=== PATIENT | female | born 1985 | race Caucasian/White ===

== ENCOUNTER 2019-02-04 05:24 | Inpatient (IN) | payer BC ==
[~2019-02-04 05:24] MED LIST: Lactated Ringers 1,000 ML IV SCH; Nalbuphine 10 MG/1 ML Vial IVPUSH PRN; Sodium Chloride 0.9% 10 ML Syringe FLUSH PRN
[2019-02-04] MEDS ORDERED: Metoclopramide 10 MG/2 ML SDV IVPUSH ONE (06:30)
[2019-02-04] MEDS ORDERED: Citric Acid/Sodium Citrate Solution 30 ML Cup PO ONE (06:30)
[2019-02-04] MEDS ORDERED: ceFAZolin 2 GM in Premix Bag 1 BAG IV ONE (07:00)
[2019-02-04] MEDS ORDERED: Bupivacaine 0.5% 30 ML SDV ONE (07:07)
[2019-02-04] MEDS ORDERED: Morphine PF 10 MG/10 ML SDV ONE (07:15)
[2019-02-04] MEDS ORDERED: Ondansetron 4 MG/2 ML SDV ONE (07:15)
[2019-02-04] MEDS ORDERED: Oxytocin 10 Units/1 ML SDV ONE (07:15)
[2019-02-04] MEDS ORDERED: ceFAZolin 1 GM Vial ONE (07:16)
[2019-02-04] MEDS ORDERED: Lactated Ringers 1,000 ML ONE ×2 (07:19)
[2019-02-04] MEDS ORDERED: Oxytocin/Lactated Ringers 10 UNIT/1,000 ML BAG IV SCH (07:30)
--- NOTE | 2019-02-04 07:37 | PCM.PREANE ---
Preanesthetic Assessment - Procedure Proposed Procedure: Scheduled Repeat - Anesthesia/Transfusion/Family Hx Anesthesia History: Prior Anesthesia Reaction Type of Anesthesia Reaction: Other (see below) (nausea not vomitting ) Family History of Anesthesia Reaction: No Transfusion History: No Prior Transfusion(s) Type of Transfusion Reactions: Reports: Unknown Intubation History: Unknown - Review of Systems General: No Symptoms Pulmonary: No Symptoms Cardiovascular: No Symptoms Gastrointestinal: No Symptoms Neurological: No Symptoms Other: Reports: Depression, Anxiety - Physical Assessment NPO Status Date: 02/03/19 NPO Status Time: 23:40 O2 Sat by Pulse Oximetry: 100 Respiratory Rate: 14 Vital Signs: Last Vital Signs Temp 36.6 C 02/04/19 05:52 Pulse 81 02/04/19 05:52 Resp 14 02/04/19 05:52 BP 141/87 H 02/04/19 05:52 Pulse Ox 100 02/04/19 05:52 Height: 1.78 m Weight: 97.069 kg ASA Class: 2 Mental Status: Alert & Oriented x3 Airway Class: Mallampati = 1 Dentition: Reports: Normal Dentition Thyro-Mental Finger Breadths: 3 Mouth Opening Finger Breadths: 5 ROM/Head Extension: Full Lungs: Clear to Auscultation, Normal Respiratory Effort Cardiovascular: Regular Rate, Regular Rhythm - Lab Values: Laboratory Last Values WBC 7.86 K/mm3 (3.98-10.04) 02/04/19 05:50 RBC 4.18 M/mm3 (3.98-5.22) 02/04/19 05:50 Hgb 12.3 gm/L (11.2-15.7) 02/04/19 05:50 Hct 36.1 % (34.1-44.9) 02/04/19 05:50 MCV 86.4 fl (79.4-94.8) 02/04/19 05:50 MCH 29.4 pg (25.6-32.2) 02/04/19 05:50 MCHC 34.1 g/dl (32.2-35.5) 02/04/19 05:50 RDW Std Deviation 40.8 fL (36.4-46.3) 02/04/19 05:50 Plt Count 185 K/mm3 (182-369) 02/04/19 05:50 MPV 11.6 fl (9.4-12.3) 02/04/19 05:50 Neut % (Auto) 53.8 % (34.0-71.1) 02/04/19 05:50 Lymph % (Auto) 31.6 % (19.3-51.7) 02/04/19 05:50 [place] % (Auto) 11.6 % (4.7-12.5) 02/04/19 05:50 Eos % (Auto) 1.7 (0.7-5.8) 02/04/19 05:50 Baso % (Auto) 0.4 % (0.1-1.2) 02/04/19 05:50 Neut # (Auto) 4.24 K/mm3 (1.56-6.13) 02/04/19 05:50 Lymph # (Auto) 2.48 K/mm3 (1.18-3.74) 02/04/19 05:50 [place] # (Auto) 0.91 K/mm3 (0.24-0.36) H 02/04/19 05:50 Eos # (Auto) 0.13 K/mm3 (0.04-0.36) 02/04/19 05:50 Baso # (Auto) 0.03 K/mm3 (0.01-0.08) 02/04/19 05:50 Blood Type A POSITIVE 02/04/19 05:50 - Allergies Allergies/Adverse Reactions: Allergies Allergy/AdvReac Type Severity Reaction Status Date / Time No Known Allergies Allergy Verified 05/28/16 05:40 - Blood Blood Available: Yes Product(s) Available: PRBC - Anesthesia Plan Pre-Op Medication Ordered: Antacids - Acknowledgements Anesthesia Type Planned: Spinal Pt an Appropriate Candidate for the Planned Anesthesia: Yes Alternatives and Risks of Anesthesia Discussed w Pt/Guardian: Yes Pt/Guardian Understands and Agrees with Anesthesia Plan: Yes PreAnesthesia Questionnaire Cardiovascular History: Reports: None Respiratory History: Reports: None Gastrointestinal History: Reports: Other (See Below) Other Gastrointestinal History: umbilical hernia Genitourinary History: Reports: UTI, Recurrent Other Genitourinary History: 2 UTI's during ; effectively treated with antibiotics THERMOMETER MAKER History: Reports: Other OB/BYN History: Hx 1 abnormal pap Musculoskeletal History: Reports: Fracture Neurological History: Reports: None Psychiatric History: Reports: Anxiety, Depression Other Psychiatric History: Hx PP depression and depression not associated with ; took Zoloft 0.5mg PO Qd, though stopped during , plans to restart medication within the next week likely. Endocrine/Metabolic History: Reports: Other (See Below) Other Endocrine/Metabolic History: thyroid cyst Hematologic History: Reports: None Immunologic History: Reports: None Oncologic (Cancer) History: Reports: None Dermatologic History: Reports: Other (See Below) Other Dermatologic History: Two dermoid cysts, one on scalp and one on chest-- both pending dermatology consult in Jun 2016 - Infectious Disease History Infectious Disease History: Reports: None - Past Surgical History HEENT Surgical History: Reports: Oral Surgery Cardiovascular Surgical History: Reports: None Respiratory Surgical History: Reports: None GI Surgical History: Reports: Hernia Repair/Other Neurological Surgical History: Reports: None Oncologic Surgical History: Reports: None - SUBSTANCE USE Smoking Status *Q: Never Smoker Tobacco Use Within Last Twelve Months: No Second Hand Smoke Exposure: No Recreational Drug Use History: No - HOME MEDS Home Medications: Home Meds Calcium Carbonate [Calcium] 1 tab PO DAILY 09/28/14 [History] Docosahexanoic Acid [DHA] 100 mg PO DAILY 09/28/14 [History] Pnv with Ca,No.71/Iron/Fa [ Vitamin Tablet] 1 tab PO DAILY 09/28/14 [ History] Potassium Gluconate 1 tab PO BID 09/28/14 [History] Acetaminophen/oxyCODONE [Percocet 325-5 MG] 1 tab PO Q6H PRN #30 tablet [Rx] Docusate Sodium [Colace] 100 mg PO Q12H PRN #1 cap 10/01/14 [Rx] Hydrocortisone [Hydrocortisone 1% Crm] 28.4 gm TOP ASDIRECTED PRN #1 crm [Rx] Ibuprofen [Motrin] 600 mg PO Q6H PRN #30 tablet 10/01/14 [Rx] Lanolin [Lansinoh HPA] 7 gm TOP ASDIRECTED PRN #1 crm 10/01/14 [Rx] Simethicone 80 mg PO ACBED #30 tab.chew 10/01/14 [Rx] - CURRENT (IN HOUSE) MEDS Current Meds: Current Medications Cefazolin Sodium/Dextrose 2 gm (/ Premix) 50 mls @ 100 mls/hr IV ONETIME ONE Stop: 02/04/19 07:29 Lactated Ringer's (Ringers, Lactated) 1,000 mls @ 125 mls/hr IV ASDIRECTED [facility] Last Admin: 02/04/19 06:05 Dose: 125 mls/hr Oxytocin/Lactated Ringer's (Pitocin In Lr 10 Units/1,000 Ml) 10 unit in 1,000 mls @ 100 mls/hr IV ASDIRECTED [facility]; Protocol Nalbuphine HCl (Nubain) 10 mg IVPUSH Q2H PRN PRN Reason: Pain Sodium Chloride (Saline Flush) 10 ml FLUSH ASDIRECTED PRN PRN Reason: Keep Vein Open Discontinued Medications Bupivacaine HCl (Marcaine 0.5%) Confirm Administered Dose 30 ml .ROUTE .[facility]-MED ONE Stop: 02/04/19 07:08 Cefazolin Sodium (Ancef) Confirm Administered Dose 2 gm .ROUTE .[facility]-MED ONE Stop: 02/04/19 07:17 Citric Acid/Sodium Citrate (Bicitra Solution) 30 ml PO ONETIME ONE Stop: 02/04/19 06:31 Last Admin: 02/04/19 06:05 Dose: 30 ml Lactated Ringer's (Ringers, Lactated) Confirm Administered Dose 1,000 mls @ as directed .ROUTE .[facility]-MED ONE Stop: 02/04/19 07:20 Lactated Ringer's (Ringers, Lactated) Confirm Administered Dose 1,000 mls @ as directed .ROUTE .[facility]-MED ONE Stop: 02/04/19 07:20 Metoclopramide HCl (Reglan) 10 mg IVPUSH ONETIME ONE Stop: 02/04/19 06:31 Last Admin: 02/04/19 06:05 Dose: 10 mg Morphine Sulfate (Duramorph Pf) Confirm Administered Dose 10 mg .ROUTE .[facility]K-MED ONE Stop: 02/04/19 07:16 Ondansetron HCl (Zofran) Confirm Administered Dose 4 mg .ROUTE .STK-MED ONE Stop: 02/04/19 07:16 Oxytocin (Pitocin) Confirm Administered Dose 10 unit .ROUTE .STK-MED ONE Stop: 02/04/19 07:16
[2019-02-04] MEDS ORDERED: diphenhydrAMINE 50 MG/ML SDV IVPUSH PRN ×2 (07:41→10:22)
[2019-02-04] MEDS ORDERED: Ondansetron 4 MG/2 ML SDV IVPUSH PRN (07:41)
[2019-02-04] MEDS ORDERED: Ketorolac 30 MG/ML SDV ONE (08:08)
--- NOTE | 2019-02-04 09:02 | PCM.POSTAN ---
POST ANESTHESIA ASSESSMENT - MENTAL STATUS Mental Status: Alert - VITAL SIGNS Pulse Rate: 78 SaO2: 96 Resp Rate: 10 Blood Pressure: 116/71 Temperature: 37.8 C - RESPIRATORY Respiratory Status: Respiratory Rate WNL, Airway Patent, O2 Saturation Stable - CARDIOVASCULAR CV Status: Pulse Rate WNL, Blood Pressure Stable - GASTROINTESTINAL GI Status: No Symptoms - PAIN Pain Score: 0 - POST OP HYDRATION Hydration Status: Adequate & Stable
--- NOTE | 2019-02-04 09:07 | PCM.OPNOTE ---
- General Post-Op/Procedure Note Date of Surgery/Procedure: 02/04/19 Operative Procedure(s): Repeat Findings: Viable female, weight 8 lbs. 9 oz., Apgars 9/9 at 08 17 Pre Op Diagnosis: Prior desires repeat Post-Op Diagnosis: Same Anesthesia Technique: Spinal Primary Surgeon: Yulissa Philip Pan Pusher: Naina Hawk Role of Pan Pusher: Retraction patient safety expediting the procedure Fluid Replacement, Intraop: 1,000 Output, Urine Amount: 200 EBL in mLs: 700 Drain/Tube Comments:: [place] Complications: None Condition: Good Free Text/Narrative:: The patient was taken to the operating room where spinal anesthesia was dosed to surgical levels without difficulty. The patient was prepped and draped in the usual sterile fashion in the dorsal supine position with a leftward tilt. A Pfannenstiel skin incision was made with the scalpel and carried through to the underlying layer of fascia. The fascia was incised in the midline and extended laterally using Penaloza scissors. Ramon clamps were used to elevate the superior aspect of the fascial incision, which was elevated, and the underlying rectus muscles were dissected off bluntly and using Penaloza scissors. Attention was then turned to the inferior aspect of the fascial incision, which in similar fashion was grasped with Ramon clamps, elevated, and the underlying rectus muscles were dissected off bluntly and using the penaloza. The rectus muscles were dissected in the midline. The peritoneum was entered bluntly; this incision was extended superiorly and inferiorly with good visualization of the bladder. The bladder blade was inserted. The vesicouterine peritoneum was identified and entered sharply using Metzenbaum scissors. This incision was extended laterally and the bladder flap was created digitally. The bladder blade was reinserted. The lower uterine segment was incised in a transverse fashion using the scalpel and with digital traction. Clear fluid was noted. The infant was subsequently delivered by flexing the head to the incision. Body and shoulders followed without difficulty. The cord was clamped and cut. The infant was subsequently handed to the awaiting bicycle rental clerk whose presence had been requested.. The placenta was delivered spontaneously intact with a three-vessel cord noted. The uterus was exteriorized and cleared of all clots and debris. The uterine incision was repaired in 2 layers using 0 monocryl. Hemostasis was visualized. Hemostasis was visualized bilaterally. The uterus was returned to the abdomen. The uterine incision was reexamined and it was noted to be hemostatic. The pelvis was copiously irrigated. Rectus muscles reapproximated with interrupted sutures of 0 Monocryl The fascia was closed with 1 PDS suture, and the skin was closed with 3-0 monocryl. Sponge, lap, and instrument counts were correct x2. The patient was stable at the completion of the procedure and was subsequently transferred to the recovery room in stable condition.
[2019-02-04] MEDS ORDERED: Naloxone 0.4 MG/ML SDV IVPUSH PRN (10:22)
[2019-02-04] MEDS ORDERED: ePHEDrine 50 MG/ML SDV IVPUSH PRN (10:22)
[2019-02-04] MEDS ORDERED: Dextrose 5%-Lactated Ringers 1,000 ML IV SCH (10:22)
[2019-02-04] MEDS ORDERED: Ibuprofen 600 MG Tab PO PRN (10:22)
[2019-02-04] MEDS ORDERED: Lanolin 100% Cream 7 GM Tube TOP PRN (10:22)
[2019-02-04] MEDS: Ketorolac 30 MG/ML SDV IVPUSH SCH ×2 (14:18→19:47)
[2019-02-04] MEDS: Acetaminophen/oxyCODONE 325-5 MG Tab PO PRN (19:53)
[2019-02-04] MEDS: Docusate Sodium 100 MG Cap PO PRN (21:52)
[2019-02-04] MEDS: Simethicone 80 MG Tab.Chew PO PRN (21:52)
[2019-02-05] MEDS: Acetaminophen/oxyCODONE 325-5 MG Tab PO PRN ×6 (00:16→22:14)
[2019-02-05] MEDS: Simethicone 80 MG Tab.Chew PO PRN ×5 (00:18→22:15)
[2019-02-05] MEDS: Ketorolac 30 MG/ML SDV IVPUSH SCH (02:12)
--- NOTE | 2019-02-05 05:05 | PCM.PNPP ---
- General Info Date of Service: 02/05/19 Functional Status: Reports: Pain Controlled - Review of Systems General: Reports: No Symptoms HEENT: Reports: No Symptoms Pulmonary: Reports: No Symptoms Cardiovascular: Reports: No Symptoms Gastrointestinal: Reports: No Symptoms Genitourinary: Reports: No Symptoms Musculoskeletal: Reports: No Symptoms Skin: Reports: No Symptoms Neurological: Reports: No Symptoms Psychiatric: Reports: No Symptoms - General Info Date of Service: 02/05/19 - Patient Data Vital Signs - Most Recent: Last Vital Signs Temp 36.1 C 02/04/19 16:05 Pulse 94 02/05/19 00:21 Resp 16 02/05/19 03:00 BP 115/77 02/05/19 00:21 Pulse Ox 99 02/05/19 03:00 Weight - Most Recent: 97.069 kg I&O - Last 24 Hours: Intake & Output 02/04/19 02/04/19 02/05/19 14:59 22:59 06:59 Intake Total 1250 1335 Output Total 400 3250 Balance 850 -1915 Lab Results - Last 24 Hours: Laboratory Results - last 24 hr 02/04/19 02/04/19 02/04/19 Range/Units 05:50 05:50 05:50 WBC 7.86 (3.98-10.04) K/mm3 RBC 4.18 (3.98-5.22) M/mm3 Hgb 12.3 (11.2-15.7) gm/L Hct 36.1 (34.1-44.9) % MCV 86.4 (79.4-94.8) fl MCH 29.4 (25.6-32.2) pg MCHC 34.1 (32.2-35.5) g/dl RDW Std Deviation 40.8 (36.4-46.3) fL Plt Count 185 (182-369) K/mm3 MPV 11.6 (9.4-12.3) fl Neut % (Auto) 53.8 (34.0-71.1) % Lymph % (Auto) 31.6 (19.3-51.7) % [place] % (Auto) 11.6 (4.7-12.5) % Eos % (Auto) 1.7 (0.7-5.8) Baso % (Auto) 0.4 (0.1-1.2) % Neut # (Auto) 4.24 (1.56-6.13) K/mm3 Lymph # (Auto) 2.48 (1.18-3.74) K/mm3 [place] # (Auto) 0.91 H (0.24-0.36) K/mm3 Eos # (Auto) 0.13 (0.04-0.36) K/mm3 Baso # (Auto) 0.03 (0.01-0.08) K/mm3 RPR Non-reactive (NONREACTIVE) Blood Type A POSITIVE Gel Antibody Screen Negative Med Orders - Current: Current Medications Diphenhydramine HCl (Benadryl) 25 mg IVPUSH Q6H PRN PRN Reason: Itching or Nausea Docusate Sodium (Colace) 100 mg PO Q12H PRN PRN Reason: Constipation Last Admin: 02/04/19 21:52 Dose: 100 mg Emollient Ointment (Lansinoh Hpa) 0 gm TOP ASDIRECTED PRN PRN Reason: Sore Nipples Ephedrine Sulfate (Ephedrine Sulfate) 5 mg IVPUSH SEECOMMENT PRN PRN Reason: Other Ibuprofen (Motrin) 600 mg PO Q6H PRN PRN Reason: mild pain or fever Naloxone HCl (Narcan) 0.1 mg IVPUSH SEECOMMENT PRN PRN Reason: Respiratory Depression Oxycodone/Acetaminophen (Percocet 325-5 Mg) 2 tab PO Q4H PRN PRN Reason: Pain (moderate 4-6) Last Admin: 02/05/19 00:16 Dose: 2 tab Simethicone (Simethicone) 80 mg PO QIDACANDBED PRN PRN Reason: Gas Last Admin: 02/05/19 00:18 Dose: 80 mg Discontinued Medications Bupivacaine HCl (Marcaine 0.5%) Confirm Administered Dose 30 ml .ROUTE .STK-MED ONE Stop: 02/04/19 07:08 Last Admin: 02/04/19 08:18 Dose: 20 ml Cefazolin Sodium (Ancef) Confirm Administered Dose 2 gm .ROUTE .STK-MED ONE Stop: 02/04/19 07:17 Citric Acid/Sodium Citrate (Bicitra Solution) 30 ml PO ONETIME ONE Stop: 02/04/19 06:31 Last Admin: 02/04/19 06:05 Dose: 30 ml Diphenhydramine HCl (Benadryl) 25 mg IVPUSH Q6H PRN PRN Reason: pruritis Cefazolin Sodium/Dextrose 2 gm (/ Premix) 50 mls @ 100 mls/hr IV ONETIME ONE Stop: 02/04/19 07:29 Lactated Ringer's (Ringers, Lactated) 1,000 mls @ 125 mls/hr IV [facility]ED [facility] Last Admin: 02/04/19 06:05 Dose: 125 mls/hr Oxytocin/Lactated Ringer's (Pitocin In Lr 10 Units/1,000 Ml) 10 unit in 1,000 mls @ 100 mls/hr IV ASD[facility]RECTED [facility]; Protocol Lactated Ringer's (Ringers, Lactated) Confirm Administered Dose 1,000 mls @ as directed .ROUTE .STK-MED ONE Stop: 02/04/19 07:20 Lactated Ringer's (Ringers, Lactated) Confirm Administered Dose 1,000 mls @ as directed .ROUTE .STK-MED ONE Stop: 02/04/19 07:20 Dextrose/Lactated Ringer's (Dextrose 5%-Lactated Ringers) 1,000 mls @ 125 mls/ hr IV [facility]RECTED [facility] Stop: 02/04/19 18:21 Last Admin: 02/04/19 10:32 Dose: 125 mls/hr Ibuprofen (Motrin) 600 mg PO Q6H PRN PRN Reason: mild pain or fever Ketorolac Tromethamine (Toradol) Confirm Administered Dose 30 mg .ROUTE .STK- MED ONE Stop: 02/04/19 08:09 Ketorolac Tromethamine (Toradol) 30 mg IVPUSH Q6H [facility] Stop: 02/05/19 02:01 Last Admin: 02/05/19 02:12 Dose: 30 mg Metoclopramide HCl (Reglan) 10 mg IVPUSH ONETIME ONE Stop: 02/04/19 06:31 Last Admin: 02/04/19 06:05 Dose: 10 mg Morphine Sulfate (Duramorph Pf) Confirm Administered Dose 10 mg .ROUTE .STK-MED ONE Stop: 02/04/19 07:16 Nalbuphine HCl (Nubain) 10 mg IVPUSH Q2H PRN PRN Reason: Pain Ondansetron HCl (Zofran) Confirm Administered Dose 4 mg .ROUTE .STK-MED ONE Stop: 02/04/19 07:16 Ondansetron HCl (Zofran) 4 mg IVPUSH ONETIME PRN PRN Reason: Nausea/Vomiting Oxytocin (Pitocin) Confirm Administered Dose 10 unit .ROUTE .STK-MED ONE Stop: 02/04/19 07:16 Sodium Chloride (Saline Flush) 10 ml FLUSH ASDIRECTED PRN PRN Reason: Keep Vein Open - Interaction Disposition, : at Bedside Support Person: - Recovery Exam Fundal Tone: Firm Fundal Level: 1 Fingerbreadths Below Umbilicus Fundal Placement: Midline Lochia Amount: Small Lochia Color: Rubra/Red Perineum Description: Intact, Minimal Bruising/Swelling Episiotomy/Laceration: None Bladder Status: Indwelling Catheter in Place Urinary Elimination: Indwelling Catheter - Exam General: Alert, Oriented HEENT: Pupils Equal Neck: Supple Lungs: Clear to Auscultation, Normal Respiratory Effort Cardiovascular: Regular Rate, Regular Rhythm GI/Abdominal Exam: Normal Bowel Sounds, Soft, Non-Tender, No Organomegaly, No Distention, No Abnormal Bruit, No Mass, Pelvis Stable Extremities: Normal Inspection, Normal Range of Motion, Non-Tender, No Pedal Edema, Normal Capillary Refill Skin: Warm, Dry, Intact Wound/Incisions: Healing Well Neurological: No New Focal Deficit Psy/Mental Status: Alert, Normal Affect, Normal Mood - Problem List Review Problem List Initiated/Reviewed/Updated: Yes - My Orders Last 24 Hours: My Active Orders 02/04/19 10:22 Communication Order [RC] PER UNIT ROUTINE Communication Order [RC] PER UNIT ROUTINE Notify Provider Intake and Out [RC] ASDIRECTED Vital Signs [RC] Q1HR Acetaminophen/oxyCODONE [Percocet 325-5 MG] 2 tab PO Q4H PRN Docusate Sodium [Colace] 100 mg PO Q12H PRN Lanolin [Lansinoh HPA] See Dose Instructions TOP ASDIRECTED PRN Naloxone [Narcan] 0.1 mg IVPUSH SEECOMMENT PRN diphenhydrAMINE [Benadryl] 25 mg IVPUSH Q6H PRN ePHEDrine [ePHEDrine sulfate] 5 mg IVPUSH SEECOMMENT PRN Assess Lochia [WOMSER] Per Unit Routine Assess Uterine Involution [WOMSER] Per Unit Routine Medication Administration Instruction [OM.PC] Routine 02/04/19 21:19 Simethicone 80 mg PO QIDACANDBED PRN 02/04/19 Lunch Regular Diet [DIET] 02/05/19 05:11 CBC WITH AUTO DIFF [HEME] AM 02/05/19 08:00 Ibuprofen [Motrin] 600 mg PO Q6H PRN 02/05/19 09:08 Urinary Catheter Removal [RC] Per Unit Routine - Assessment Assessment:: Term . POD1 Doing great. - Plan Plan:: Rx sent ahead of time for percocet. Doing great. Probably will desire discharge POD3.
--- NOTE | 2019-02-05 07:38 | PCM48HPAN ---
Post Anesthesia Note - EVALUATION WITHIN 48HRS OF ANESTHETIC Vital Signs in Normal Range: Yes Patient Participated in Evaluation: Yes Respiratory Function Stable: Yes Airway Patent: Yes Cardiovascular Function Stable: Yes Hydration Status Stable: Yes Pain Control Satisfactory: Yes Nausea and Vomiting Control Satisfactory: Yes Mental Status Recovered: Yes Pulse Rate: 94 Resp Rate: 15 Temperature: 36.1 C Blood Pressure: 115/77
[2019-02-05] MEDS: Docusate Sodium 100 MG Cap PO PRN ×2 (12:24→22:15)
[2019-02-05] MEDS: Ibuprofen 600 MG Tab PO PRN (19:43)
[2019-02-06] MEDS: Ibuprofen 600 MG Tab PO PRN (03:21)
[2019-02-06] MEDS: Acetaminophen/oxyCODONE 325-5 MG Tab PO PRN ×4 (06:54→18:57)
--- NOTE | 2019-02-06 08:10 | PCM.PNPP ---
- General Info Date of Service: 02/06/19 Functional Status: Reports: Pain Controlled, Tolerating Diet, Ambulating, Urinating - Review of Systems General: Reports: No Symptoms Pulmonary: Reports: No Symptoms Cardiovascular: Reports: No Symptoms Gastrointestinal: Reports: Abdominal Pain (managed with medications ) Genitourinary: Reports: No Symptoms Musculoskeletal: Reports: No Symptoms Neurological: Reports: No Symptoms - Patient Data Vital Signs - Most Recent: Last Vital Signs Temp 37.1 C 02/06/19 02:43 Pulse 72 02/06/19 02:43 Resp 12 02/06/19 02:43 BP 101/57 L 02/06/19 02:43 Pulse Ox 97 02/06/19 02:43 Weight - Most Recent: 97.069 kg I&O - Last 24 Hours: Intake & Output 02/05/19 02/06/19 02/06/19 22:59 06:59 14:59 Intake Total 960 Balance 960 Med Orders - Current: Current Medications Diphenhydramine HCl (Benadryl) 25 mg IVPUSH Q6H PRN PRN Reason: Itching or Nausea Docusate Sodium (Colace) 100 mg PO Q12H PRN PRN Reason: Constipation Last Admin: 02/05/19 22:15 Dose: 100 mg Emollient Ointment (Lansinoh Hpa) 0 gm TOP ASDIRECTED PRN PRN Reason: Sore Nipples Last Admin: 02/05/19 05:40 Dose: 1 tube Ephedrine Sulfate (Ephedrine Sulfate) 5 mg IVPUSH SEECOMMENT PRN PRN Reason: Other Ibuprofen (Motrin) 600 mg PO Q6H PRN PRN Reason: mild pain or fever Last Admin: 02/06/19 03:21 Dose: 600 mg Naloxone HCl (Narcan) 0.1 mg IVPUSH SEECOMMENT PRN PRN Reason: Respiratory Depression Oxycodone/Acetaminophen (Percocet 325-5 Mg) 2 tab PO Q4H PRN PRN Reason: Pain (moderate 4-6) Last Admin: 02/06/19 06:54 Dose: 2 tab Simethicone (Simethicone) 80 mg PO QIDACANDBED PRN PRN Reason: Gas Last Admin: 02/05/19 22:15 Dose: 80 mg Discontinued Medications Bupivacaine HCl (Marcaine 0.5%) Confirm Administered Dose 30 ml .ROUTE .[facility]-MED ONE Stop: 02/04/19 07:08 Last Admin: 02/04/19 08:18 Dose: 20 ml Cefazolin Sodium (Ancef) Confirm Administered Dose 2 gm .ROUTE .[facility]-MED ONE Stop: 02/04/19 07:17 Citric Acid/Sodium Citrate (Bicitra Solution) 30 ml PO ONETIME ONE Stop: 02/04/19 06:31 Last Admin: 02/04/19 06:05 Dose: 30 ml Diphenhydramine HCl (Benadryl) 25 mg IVPUSH Q6H PRN PRN Reason: pruritis Cefazolin Sodium/Dextrose 2 gm (/ Premix) 50 mls @ 100 mls/hr IV ONETIME ONE Stop: 02/04/19 07:29 Lactated Ringer's (Ringers, Lactated) 1,000 mls @ 125 mls/hr IV ASDIRECTED [facility] Last Admin: 02/04/19 06:05 Dose: 125 mls/hr Oxytocin/Lactated Ringer's (Pitocin In Lr 10 Units/1,000 Ml) 10 unit in 1,000 mls @ 100 mls/hr IV ASDIRECTED [facility]; Protocol Lactated Ringer's (Ringers, Lactated) Confirm Administered Dose 1,000 mls @ as directed .ROUTE .[facility]-MED ONE Stop: 02/04/19 07:20 Lactated Ringer's (Ringers, Lactated) Confirm Administered Dose 1,000 mls @ as directed .ROUTE .[facility]-MED ONE Stop: 02/04/19 07:20 Dextrose/Lactated Ringer's (Dextrose 5%-Lactated Ringers) 1,000 mls @ 125 mls/ hr IV ASDIRECTED [facility] Stop: 02/04/19 18:21 Last Admin: 02/04/19 10:32 Dose: 125 mls/hr Ibuprofen (Motrin) 600 mg PO Q6H PRN PRN Reason: mild pain or fever Ketorolac Tromethamine (Toradol) Confirm Administered Dose 30 mg .ROUTE .STK- MED ONE Stop: 02/04/19 08:09 Ketorolac Tromethamine (Toradol) 30 mg IVPUSH Q6H [facility] Stop: 02/05/19 02:01 Last Admin: 02/05/19 02:12 Dose: 30 mg Metoclopramide HCl (Reglan) 10 mg IVPUSH ONETIME ONE Stop: 02/04/19 06:31 Last Admin: 02/04/19 06:05 Dose: 10 mg Morphine Sulfate (Duramorph Pf) Confirm Administered Dose 10 mg .ROUTE .STK-MED ONE Stop: 02/04/19 07:16 Nalbuphine HCl (Nubain) 10 mg IVPUSH Q2H PRN PRN Reason: Pain Ondansetron HCl (Zofran) Confirm Administered Dose 4 mg .ROUTE .STK-MED ONE Stop: 02/04/19 07:16 Ondansetron HCl (Zofran) 4 mg IVPUSH ONETIME PRN PRN Reason: Nausea/Vomiting Oxytocin (Pitocin) Confirm Administered Dose 10 unit .ROUTE .STK-MED ONE Stop: 02/04/19 07:16 Sodium Chloride (Saline Flush) 10 ml FLUSH ASDIRECTED PRN PRN Reason: Keep Vein Open - Infant Interaction Infant Disposition, : [place] at Bedside Interaction: Holding Infant Infant Feeding: Breastfed Infant; Nursed Well Support Person: - Recovery Exam Fundal Tone: Firm Fundal Level: 1 Fingerbreadths Below Umbilicus Fundal Placement: Midline Lochia Amount: Small Lochia Color: Rubra/Red Perineum Description: Intact, Minimal Bruising/Swelling Episiotomy/Laceration: None Bladder Status: Voiding Urinary Elimination: Voided Other Urinary Elimination, : catheter removed - Exam General: Alert, Oriented, Cooperative Lungs: Clear to Auscultation, Normal Respiratory Effort Cardiovascular: Regular Rhythm, Bradycardia GI/Abdominal Exam: Soft, Tender (appropriate post op) Extremities: Normal Inspection Skin: Warm, Dry, Intact Wound/Incisions: Healing Well, No Drainage - Problem List & Annotations (1) 39 weeks gestation of SNOMED Code(s): 73822190 Code(s): Z3A.39 - 39 WEEKS GESTATION OF Status: Acute Current Visit: Yes (2) S/P repeat low transverse SNOMED Code(s): 594383654, 48614227, 506877284, 804476070, 393714412 Code(s): Z98.891 - HISTORY OF UTERINE SCAR FROM PREVIOUS SURGERY Status: Acute Current Visit: Yes - Problem List Review Problem List Initiated/Reviewed/Updated: Yes - Assessment Assessment:: 33 y/o G4 now P4004 PPD#2 from [facility] - Plan Plan:: S/p [facility] * Routine cares * Breast feeding * Discharge home tomorrow
[2019-02-06] MEDS: Docusate Sodium 100 MG Cap PO PRN (09:44)
[2019-02-06] MEDS ORDERED: Magnesium Hydroxide 400 MG/5 ML Susp 30 ML Cup PO ONE (13:21)
[2019-02-07] MEDS: Acetaminophen/oxyCODONE 325-5 MG Tab PO PRN ×3 (00:12→10:06)
[2019-02-07] MEDS: Ibuprofen 600 MG Tab PO PRN (03:36)
[2019-02-07] MEDS: Docusate Sodium 100 MG Cap PO PRN (05:47)
--- NOTE | 2019-02-07 09:17 | PCM.PNPP ---
- General Info Date of Service: 02/07/19 Functional Status: Reports: Pain Controlled, Tolerating Diet, Ambulating, Urinating - Review of Systems General: Reports: No Symptoms Pulmonary: Reports: No Symptoms Cardiovascular: Reports: No Symptoms Gastrointestinal: Reports: Abdominal Pain (along incision line) Genitourinary: Reports: No Symptoms Musculoskeletal: Reports: No Symptoms Neurological: Reports: No Symptoms - Patient Data Vital Signs - Most Recent: Last Vital Signs Temp 36.7 C 02/07/19 02:00 Pulse 84 02/07/19 02:00 Resp 16 02/07/19 02:00 BP 119/78 02/07/19 02:00 Pulse Ox 98 02/07/19 02:00 Weight - Most Recent: 97.069 kg I&O - Last 24 Hours: Intake & Output 02/06/19 02/07/19 02/07/19 22:59 06:59 14:59 Intake Total 960 Balance 960 Med Orders - Current: Current Medications Diphenhydramine HCl (Benadryl) 25 mg IVPUSH Q6H PRN PRN Reason: Itching or Nausea Docusate Sodium (Colace) 100 mg PO Q12H PRN PRN Reason: Constipation Last Admin: 02/07/19 05:47 Dose: 100 mg Emollient Ointment (Lansinoh Hpa) 0 gm TOP ASDIRECTED PRN PRN Reason: Sore Nipples Last Admin: 02/05/19 05:40 Dose: 1 tube Ephedrine Sulfate (Ephedrine Sulfate) 5 mg IVPUSH SEECOMMENT PRN PRN Reason: Other Ibuprofen (Motrin) 600 mg PO Q6H PRN PRN Reason: mild pain or fever Last Admin: 02/07/19 03:36 Dose: 600 mg Naloxone HCl (Narcan) 0.1 mg IVPUSH SEECOMMENT PRN PRN Reason: Respiratory Depression Oxycodone/Acetaminophen (Percocet 325-5 Mg) 2 tab PO Q4H PRN PRN Reason: Pain (moderate 4-6) Last Admin: 02/07/19 05:47 Dose: 2 tab Simethicone (Simethicone) 80 mg PO QIDACANDBED PRN PRN Reason: Gas Last Admin: 02/05/19 22:15 Dose: 80 mg Discontinued Medications Bupivacaine HCl (Marcaine 0.5%) Confirm Administered Dose 30 ml .ROUTE .[facility] ONE Stop: 02/04/19 07:08 Last Admin: 02/04/19 08:18 Dose: 20 ml Cefazolin Sodium (Ancef) Confirm Administered Dose 2 gm .ROUTE .[facility] ONE Stop: 02/04/19 07:17 Citric Acid/Sodium Citrate (Bicitra Solution) 30 ml PO ONETIME ONE Stop: 02/04/19 06:31 Last Admin: 02/04/19 06:05 Dose: 30 ml Diphenhydramine HCl (Benadryl) 25 mg IVPUSH Q6H PRN PRN Reason: pruritis Cefazolin Sodium/Dextrose 2 gm (/ Premix) 50 mls @ 100 mls/hr IV ONETIME ONE Stop: 02/04/19 07:29 Lactated Ringer's (Ringers, Lactated) 1,000 mls @ 125 mls/hr IV ASDIRECTED [facility] Last Admin: 02/04/19 06:05 Dose: 125 mls/hr Oxytocin/Lactated Ringer's (Pitocin In Lr 10 Units/1,000 Ml) 10 unit in 1,000 mls @ 100 mls/hr IV ASDIRECTED [facility]; Protocol Lactated Ringer's (Ringers, Lactated) Confirm Administered Dose 1,000 mls @ as directed .ROUTE .[facility] ONE Stop: 02/04/19 07:20 Lactated Ringer's (Ringers, Lactated) Confirm Administered Dose 1,000 mls @ as directed .ROUTE .[facility] ONE Stop: 02/04/19 07:20 Dextrose/Lactated Ringer's (Dextrose 5%-Lactated Ringers) 1,000 mls @ 125 mls/ hr IV ASDIRECTED [facility] Stop: 02/04/19 18:21 Last Admin: 02/04/19 10:32 Dose: 125 mls/hr Ibuprofen (Motrin) 600 mg PO Q6H PRN PRN Reason: mild pain or fever Ketorolac Tromethamine (Toradol) Confirm Administered Dose 30 mg .ROUTE .[facility]- MED ONE Stop: 02/04/19 08:09 Ketorolac Tromethamine (Toradol) 30 mg IVPUSH Q6H [facility] Stop: 02/05/19 02:01 Last Admin: 02/05/19 02:12 Dose: 30 mg Magnesium Hydroxide (Milk Of Magnesia) 30 ml PO ONETIME ONE Stop: 02/06/19 13:22 Last Admin: 02/06/19 13:28 Dose: 30 ml Metoclopramide HCl (Reglan) 10 mg IVPUSH ONETIME ONE Stop: 02/04/19 06:31 Last Admin: 02/04/19 06:05 Dose: 10 mg Morphine Sulfate (Duramorph Pf) Confirm Administered Dose 10 mg .ROUTE .[facility]-MED ONE Stop: 02/04/19 07:16 Nalbuphine HCl (Nubain) 10 mg IVPUSH Q2H PRN PRN Reason: Pain Ondansetron HCl (Zofran) Confirm Administered Dose 4 mg .ROUTE .[facility]-MED ONE Stop: 02/04/19 07:16 Ondansetron HCl (Zofran) 4 mg IVPUSH ONETIME PRN PRN Reason: Nausea/Vomiting Oxytocin (Pitocin) Confirm Administered Dose 10 unit .ROUTE .[facility]-MED ONE Stop: 02/04/19 07:16 Sodium Chloride (Saline Flush) 10 ml FLUSH ASDIRECTED PRN PRN Reason: Keep Vein Open - Infant Interaction Infant Disposition, : [place] at Bedside Infant Interaction: Holding Feeding: Breastfed Infant; Nursed Well Support Person: - Recovery Exam Fundal Tone: Firm Fundal Level: 2 Fingerbreadths Below Umbilicus Fundal Placement: Midline Lochia Amount: Small Lochia Color: Rubra/Red Perineum Description: Intact, Minimal Bruising/Swelling Episiotomy/Laceration: None Bladder Status: Voiding Urinary Elimination: Voided Other Urinary Elimination, : catheter removed - Exam General: Alert, Oriented, Cooperative Lungs: Clear to Auscultation, Normal Respiratory Effort Cardiovascular: Regular Rate, Regular Rhythm GI/Abdominal Exam: Soft, Tender (appropriate for post op) Extremities: Normal Inspection Skin: Warm, Dry, Intact Wound/Incisions: Healing Well, No Drainage - Problem List & Annotations (1) 39 weeks gestation of SNOMED Code(s): 24678210 Code(s): Z3A.39 - 39 WEEKS GESTATION OF Status: Acute Current Visit: Yes (2) S/P repeat low transverse SNOMED Code(s): 304721546, 68006051, 764719344, 403411830, 948472852 Code(s): Z98.891 - HISTORY OF UTERINE SCAR FROM PREVIOUS SURGERY Status: Acute Current Visit: Yes - Problem List Review Problem List Initiated/Reviewed/Updated: Yes - Assessment Assessment:: 33 y/o G4 now P4004 PPD#3 from RLTCS - Plan Plan:: S/p RLTCS * Routine cares * Breast feeding * Discharge home today
--- NOTE | 2019-02-07 09:22 | PCM.DCSUM1 ---
Discharge Summary - Discharge Data Discharge Date: 02/07/19 Discharge Disposition: Home, Self-Care 01 Condition: Good - Discharge Diagnosis/Problem(s) (1) 39 weeks gestation of SNOMED Code(s): 27711211 ICD Code: Z3A.39 - 39 WEEKS GESTATION OF Status: Acute Current Visit: Yes (2) S/P repeat low transverse SNOMED Code(s): 940747357, 92067248, 691719151, 668043239, 561892847 ICD Code: Z98.891 - HISTORY OF UTERINE SCAR FROM PREVIOUS SURGERY Status: Acute Current Visit: Yes - Patient Summary/Data Operative Procedure(s) Performed: Repeat Complications: None Consults: None Recommended Follow-up Testing/Procedures: Follow up in 1 week for incision check Hospital Course: 33 y/o presented for planned RLTCS. This was uncomplicated. See procedure note. Post op patient did well and was discharged home on POD#3 - Patient Instructions Diet: Regular Diet as Tolerated Activity: No Lifting Over 10 Pounds Activity, Other: Pelvic rest for 6 weeks Driving: Do Not Drive (While taking narcotics ) Showering/Bathing: May Shower, No Tub Bathing/Swimming Wound/Incision Care: Keep Operative Site/Wound Site Clean and Dry Notify Provider of: Fever, Increased Pain, Swelling and Redness, Drainage, Nausea and/or Vomiting - Discharge Plan *PRESCRIPTION DRUG MONITORING PROGRAM REVIEWED*: Not Applicable *COPY OF PRESCRIPTION DRUG MONITORING REPORT IN PATIENT IRAM: Not Applicable Home Medications: Home Meds Calcium Carbonate [Calcium] 1 tab PO DAILY 09/28/14 [History] Docosahexanoic Acid [DHA] 100 mg PO DAILY 09/28/14 [History] Pnv with Ca,No.71/Iron/Fa [ Vitamin Tablet] 1 tab PO DAILY 09/28/14 [ History] Potassium Gluconate 1 tab PO BID 09/28/14 [History] Acetaminophen/oxyCODONE [Percocet 325-5 MG] 1 tab PO Q6H PRN #30 tablet [Rx] Docusate Sodium [Colace] 100 mg PO Q12H PRN #1 cap 10/01/14 [Rx] Hydrocortisone [Hydrocortisone 1% Crm] 28.4 gm TOP ASDIRECTED PRN #1 crm [Rx] Ibuprofen [Motrin] 600 mg PO Q6H PRN #30 tablet 10/01/14 [Rx] Lanolin [Lansinoh HPA] 7 gm TOP ASDIRECTED PRN #1 crm 10/01/14 [Rx] Simethicone 80 mg PO ACBED #30 tab.chew 10/01/14 [Rx] Referrals: Yulissa Philip MD [Primary Care Provider] - (2 weeks for incision check ) - Discharge Summary/Plan Comment DC Time >30 min.: No - Patient Data Vitals - Most Recent: Last Vital Signs Temp 36.7 C 02/07/19 02:00 Pulse 84 02/07/19 02:00 Resp 16 02/07/19 02:00 BP 119/78 02/07/19 02:00 Pulse Ox 98 02/07/19 02:00 Weight - Most Recent: 97.069 kg I&O - Last 24 hours: Intake & Output 02/06/19 02/07/19 02/07/19 22:59 06:59 14:59 Intake Total 960 Balance 960 Med Orders - Current: Current Medications Diphenhydramine HCl (Benadryl) 25 mg IVPUSH Q6H PRN PRN Reason: Itching or Nausea Docusate Sodium (Colace) 100 mg PO Q12H PRN PRN Reason: Constipation Last Admin: 02/07/19 05:47 Dose: 100 mg Emollient Ointment (Lansinoh Hpa) 0 gm TOP ASDIRECTED PRN PRN Reason: Sore Nipples Last Admin: 02/05/19 05:40 Dose: 1 tube Ephedrine Sulfate (Ephedrine Sulfate) 5 mg IVPUSH SEECOMMENT PRN PRN Reason: Other Ibuprofen (Motrin) 600 mg PO Q6H PRN PRN Reason: mild pain or fever Last Admin: 02/07/19 03:36 Dose: 600 mg Naloxone HCl (Narcan) 0.1 mg IVPUSH SEECOMMENT PRN PRN Reason: Respiratory Depression Oxycodone/Acetaminophen (Percocet 325-5 Mg) 2 tab PO Q4H PRN PRN Reason: Pain (moderate 4-6) Last Admin: 02/07/19 05:47 Dose: 2 tab Simethicone (Simethicone) 80 mg PO QIDACANDBED PRN PRN Reason: Gas Last Admin: 02/05/19 22:15 Dose: 80 mg Discontinued Medications Bupivacaine HCl (Marcaine 0.5%) Confirm Administered Dose 30 ml .ROUTE .[facility] ONE Stop: 02/04/19 07:08 Last Admin: 02/04/19 08:18 Dose: 20 ml Cefazolin Sodium (Ancef) Confirm Administered Dose 2 gm .ROUTE .[facility] ONE Stop: 02/04/19 07:17 Citric Acid/Sodium Citrate (Bicitra Solution) 30 ml PO ONETIME ONE Stop: 02/04/19 06:31 Last Admin: 02/04/19 06:05 Dose: 30 ml Diphenhydramine HCl (Benadryl) 25 mg IVPUSH Q6H PRN PRN Reason: pruritis Cefazolin Sodium/Dextrose 2 gm (/ Premix) 50 mls @ 100 mls/hr IV ONETIME ONE Stop: 02/04/19 07:29 Lactated Ringer's (Ringers, Lactated) 1,000 mls @ 125 mls/hr IV ASDIRECTED [facility] Last Admin: 02/04/19 06:05 Dose: 125 mls/hr Oxytocin/Lactated Ringer's (Pitocin In Lr 10 Units/1,000 Ml) 10 unit in 1,000 mls @ 100 mls/hr IV ASDIRECTED [facility]; Protocol Lactated Ringer's (Ringers, Lactated) Confirm Administered Dose 1,000 mls @ as directed .ROUTE .[facility] ONE Stop: 02/04/19 07:20 Lactated Ringer's (Ringers, Lactated) Confirm Administered Dose 1,000 mls @ as directed .ROUTE .[facility] ONE Stop: 02/04/19 07:20 Dextrose/Lactated Ringer's (Dextrose 5%-Lactated Ringers) 1,000 mls @ 125 mls/ hr IV ASDIRECTED [facility] Stop: 02/04/19 18:21 Last Admin: 02/04/19 10:32 Dose: 125 mls/hr Ibuprofen (Motrin) 600 mg PO Q6H PRN PRN Reason: mild pain or fever Ketorolac Tromethamine (Toradol) Confirm Administered Dose 30 mg .ROUTE .[facility]- MED ONE Stop: 02/04/19 08:09 Ketorolac Tromethamine (Toradol) 30 mg IVPUSH Q6H [facility] Stop: 02/05/19 02:01 Last Admin: 02/05/19 02:12 Dose: 30 mg Magnesium Hydroxide (Milk Of Magnesia) 30 ml PO ONETIME ONE Stop: 02/06/19 13:22 Last Admin: 02/06/19 13:28 Dose: 30 ml Metoclopramide HCl (Reglan) 10 mg IVPUSH ONETIME ONE Stop: 02/04/19 06:31 Last Admin: 02/04/19 06:05 Dose: 10 mg Morphine Sulfate (Duramorph Pf) Confirm Administered Dose 10 mg .ROUTE .[facility]-MED ONE Stop: 02/04/19 07:16 Nalbuphine HCl (Nubain) 10 mg IVPUSH Q2H PRN PRN Reason: Pain Ondansetron HCl (Zofran) Confirm Administered Dose 4 mg .ROUTE .[facility]-MED ONE Stop: 02/04/19 07:16 Ondansetron HCl (Zofran) 4 mg IVPUSH ONETIME PRN PRN Reason: Nausea/Vomiting Oxytocin (Pitocin) Confirm Administered Dose 10 unit .ROUTE .[facility]-MED ONE Stop: 02/04/19 07:16 Sodium Chloride (Saline Flush) 10 ml FLUSH ASDIRECTED PRN PRN Reason: Keep Vein Open
[2019-02-07 14:20] VITALS: BP 120/72
== END 2019-02-07 11:00 | disposition home or self-care (01) | DRG 540 ==
LOC: JD.OB 05:24
PROVIDERS: ADMIT Obstetrics & Gynecology; ATTEND Obstetrics & Gynecology
PROC: 10D00Z1 Extraction of Products of Conception, Low, Open Approach (ICD-10-PCS; principal; 2019-02-04)
DX: O34.211 Maternal care for low transverse scar from previous cesarean delivery (principal); O99.344 Other mental disorders complicating childbirth; F32.9 Major depressive disorder, single episode, unspecified; F41.9 Anxiety disorder, unspecified; Z37.0 Single live birth; Z3A.39 39 weeks gestation of pregnancy
CPT/HCPCS: 01961; 36415; 59025; 85025; 86592; 86850; 86900; 86901; 94762; A9270-GY; J0690; J1885; J2270; J2405; J2590; J2765; J3490; J7042; J7120

== ENCOUNTER 2022-12-05 19:23 | Emergency (ER) | payer BC ==
[2022-12-05] MEDS ORDERED: Ibuprofen 400 MG Tab PO ONE (22:18)
[2022-12-05] MEDS ORDERED: ALPRAZolam 0.25 MG Tab PO ONE (22:27)
[2022-12-06] MEDS ORDERED: LORazepam 1 MG Tab PO ONE ×3 (00:43→21:29)
[2022-12-06] MEDS ORDERED: Ibuprofen 600 MG Tab PO ONE (18:09)
[2022-12-06] MEDS ORDERED: Acetaminophen/HYDROcodone 325-5 MG Tab PO ONE (20:46)
[2022-12-07] MEDS ORDERED: LORazepam 1 MG Tab PO STA (02:52)
[2022-12-07 06:29] VITALS: BP 118/94; PULSE 88
== END 2022-12-07 06:45 ==
LOC: JD.ED 19:23
DX: F10.10 Alcohol abuse, uncomplicated (principal); R45.851 Suicidal ideations; Y90.1 Blood alcohol level of 20-39 mg/100 ml
CPT/HCPCS: 36415; 80053; 80143; 80179; 80306; 80307; 81025; 84443; 85025; 99285; A9270; 99284

== ENCOUNTER 2023-01-16 21:36 | Emergency (ER) | payer BC ==
[2023-01-16 21:42] VITALS: BP 103/76; PULSE 94
== END 2023-01-16 23:04 | disposition home or self-care (01) ==
LOC: JD.ED 21:36
DX: F10.920 Alcohol use, unspecified with intoxication, uncomplicated (principal)
CPT/HCPCS: 99283

== ENCOUNTER 2023-07-21 18:09 | Emergency (ER) | payer BC ==
[2023-07-21 19:08] LABS: BASOPHILS ABSOLUTE AUTO 0.1 K/mm3 (0.0-0.2); BASOPHILS PERCENT AUTO 1.2 % (0.0-1.0); EOSINOPHILS ABSOLUTE AUTO 0.1 K/mm3 (0.0-0.4); EOSINOPHILS PERCENT AUTO 1.8 % (0.0-6.0); HEMATOCRIT 39.1 % (37.0-47.0); HEMOGLOBIN 13.2 gm/dl (12.0-16.0); IMMATURE GRAN ABSOLUTE AUTO 0.02 K/mm3 (0.00-0.05); IMMATURE GRAN PERCENT AUTO 0.3 % (0.0-0.4); LYMPHOCYTES PERCENT AUTO 45.8 % (24.0-44.0); MEAN CORPUSCULAR HEMOGLOBIN 28.1 pg (28.0-32.0); MEAN CORPUSCULAR HGB CONC 33.8 g/dl (32.0-36.0); MEAN CORPUSCULAR VOLUME 83.4 fl (83.0-99.0); MEAN PLATELET VOLUME 10.7 fl (9.4-12.3); MONOCYTES ABSOLUTE AUTO 0.3 K/mm3 (0.0-0.8); MONOCYTES PERCENT AUTO 4.4 % (0.0-8.0); NEUTROPHILS ABSOLUTE AUTO 3.1 K/mm3 (1.8-7.7); NEUTROPHILS PERCENT AUTO 46.5 % (41.0-71.0); PLATELET COUNT,PLT 308 K/mm3 (150-400); RED BLOOD CELL COUNT 4.69 M/mm3 (4.10-5.30); WHITE BLOOD CELL COUNT,WBC 6.62 K/mm3 (3.9-11.3)
[2023-07-21 19:24] LABS: BARBITURATE SCREEN,URINE NEGATIVE (CUTOFF=200); BENZODIAZEPINES SCREEN,URINE NEGATIVE (CUTOFF=150); BUPRENORPHINE SCREEN,URINE NEGATIVE (CUTOFF=10); METHADONE SCREEN, URINE NEGATIVE (CUTOFF=200); METHAMPHETAMINES SCREEN, URINE NEGATIVE (CUTOFF=500); OXYCODONE SCREEN,URINE NEGATIVE (CUT0FF=100); THC SCREEN,URINE 20 NG/ML NEGATIVE (CUTOFF=50)
[2023-07-21 19:28] LABS: AMPHETAMINES SCREEN, URINE NEGATIVE (CUTOFF=500)
[2023-07-21 19:43] LABS: ALANINE AMINOTRANSFERASE,ALT 26 U/L (14-59); ALBUMIN 4.2 g/dl (3.4-5.0); ALKALINE PHOSPHATASE 40 U/L (46-116); ANION GAP 13.4 (5-15); ASPARTATE AMNIOTRANSFERASE,AST 22 U/L (15-37); BILIRUBIN TOTAL 0.2 mg/dL (0.2-1.0); BLOOD UREA NITROGEN,BUN 12 mg/dL (7-18); CALCIUM 8.9 mg/dL (8.5-10.1); CARBON DIOXIDE,CO2 24 mEq/L (21-32); CHLORIDE,CL 105 mEq/L (98-107); ESTIMATED GFR 75 mL/min (>60); ETHANOL BLOOD MEDICAL 0.26 gm% (0.00); GLUCOSE RANDOM 102 mg/dL (70-99); POTASSIUM,K 3.4 mEq/L (3.5-5.1); PROTEIN TOTAL,TP 8.5 g/dl (6.4-8.2); SODIUM,NA 139 mEq/L (136-145); TSH 2.524 uIU/mL (0.358-3.74)
[2023-07-21 20:01] LABS: ACETAMINOPHEN 0 ug/mL (10-30); HCG QUANTITATIVE < 1.0 mIU/mL
[2023-07-21] MEDS ORDERED: Sodium Chloride 0.9% 1,000 ML IV SCH (20:15)
[2023-07-21 21:37] VITALS: BP 100/81; PULSE 76
== END 2023-07-21 21:35 | disposition other institution (70) ==
LOC: JD.ED 18:09
DX: F10.920 Alcohol use, unspecified with intoxication, uncomplicated (principal)
CPT/HCPCS: 36415; 80053; 80143; 80179; 80306; 80307; 84443; 84702; 85025; 96360; 99285; J7030; 99284

== ENCOUNTER 2023-11-25 13:52 | Emergency (ER) | payer BC ==
[2023-11-25 14:27] VITALS: BP 139/102; PULSE 76
[2023-11-25 14:51] LABS: BASOPHILS ABSOLUTE AUTO 0.1 K/mm3 (0.0-0.2); BASOPHILS PERCENT AUTO 0.6 % (0.0-1.0); EOSINOPHILS ABSOLUTE AUTO 0.1 K/mm3 (0.0-0.4); HEMATOCRIT 36.1 % (37.0-47.0); HEMOGLOBIN 12.1 gm/dl (12.0-16.0); IMMATURE GRAN ABSOLUTE AUTO 0.02 K/mm3 (0.00-0.05); IMMATURE GRAN PERCENT AUTO 0.2 % (0.0-0.4); LYMPHOCYTES ABSOLUTE AUTO 2.7 K/mm3 (1.0-4.8); LYMPHOCYTES PERCENT AUTO 33.3 % (24.0-44.0); MEAN CORPUSCULAR HEMOGLOBIN 28.7 pg (28.0-32.0); MEAN CORPUSCULAR HGB CONC 33.5 g/dl (32.0-36.0); MEAN CORPUSCULAR VOLUME 85.7 fl (83.0-99.0); MEAN PLATELET VOLUME 10.1 fl (9.4-12.3); MONOCYTES ABSOLUTE AUTO 0.8 K/mm3 (0.0-0.8); MONOCYTES PERCENT AUTO 9.5 % (0.0-8.0); NEUTROPHILS ABSOLUTE AUTO 4.5 K/mm3 (1.8-7.7); NEUTROPHILS PERCENT AUTO 55.4 % (41.0-71.0); PLATELET COUNT,PLT 266 K/mm3 (150-400); RED BLOOD CELL COUNT 4.21 M/mm3 (4.10-5.30); WHITE BLOOD CELL COUNT,WBC 8.18 K/mm3 (3.9-11.3)
[2023-11-25 15:28] LABS: A/G RATIO 1.1 (1-2); ALBUMIN 3.8 g/dl (3.4-5.0); ANION GAP 13.5 (5-15); BILIRUBIN TOTAL 0.3 mg/dL (0.2-1.0); BUN/CREATININE RATIO 26.3 (14-18); CREATININE 0.8 mg/dL (0.55-1.02); EST CRCL DRUG DOSING (CG) 104.12 mL/min; POTASSIUM,K 3.5 mEq/L (3.5-5.1); PROTEIN TOTAL,TP 7.4 g/dl (6.4-8.2); TSH 2.48 uIU/mL (0.358-3.74)
[2023-11-25 15:59] LABS: AMPHETAMINES SCREEN, URINE NEGATIVE (CUTOFF=500); BARBITURATE SCREEN,URINE NEGATIVE (CUTOFF=200); BENZODIAZEPINES SCREEN,URINE PRESUMPTIVE POSITIVE (CUTOFF=150); BUPRENORPHINE SCREEN,URINE NEGATIVE (CUTOFF=10); METHADONE SCREEN, URINE NEGATIVE (CUTOFF=200); METHAMPHETAMINES SCREEN, URINE NEGATIVE (CUTOFF=500); OXYCODONE SCREEN,URINE NEGATIVE (CUT0FF=100); THC SCREEN,URINE 20 NG/ML NEGATIVE (CUTOFF=50)
== END 2023-11-25 17:40 ==
LOC: JD.ED 13:52
DX: R45.851 Suicidal ideations (principal); Z79.899 Other long term (current) drug therapy
CPT/HCPCS: 36415; 80053; 80143; 80179; 80306; 80307; 84443; 84702; 85025; 93005; 93010; 99285